=== PATIENT | female | born 1965 | race Caucasian/White ===

== ENCOUNTER 2017-10-09 12:00 | Day surgery (SDC) | payer OTHER ==
[2017-10-09] MEDS ORDERED: FENTAnyl 50 MCG/ML VIAL (14:30)
[2017-10-09] MEDS ORDERED: MIDAZOLAM 1 MG/ML 2 ML INJ ×3 (14:31)
== END 2017-10-09 15:10 | disposition home or self-care (01) ==
LOC: GIL 12:00
DX: Z12.11 Encounter for screening for malignant neoplasm of colon (principal); K64.9 Unspecified hemorrhoids
CPT/HCPCS: 45378; 84703